=== PATIENT | female | born 1945 | race Caucasian/White ===

== ENCOUNTER → 2017-12-15 | Outpatient (CLI) | payer OTHER | LOC: LAB 11:00 → LAB SHORT 11:00 | DX: N39.0 Urinary tract infection, site not specified (principal) | CPT/HCPCS: 87086 ==

== ENCOUNTER → 2019-02-20 | Outpatient (CLI) | payer OTHER ==
[2019-02-21 10:37] LABS: Stool Occult Bld Immuno 1 Negative (NEGATIVE)
== END | disposition home or self-care (01) ==
LOC: LAB 12:19 → LAB SHORT 12:19 → LAB FUT 02-14 13:15
PROVIDERS: Family Medicine
DX: Z12.11 Encounter for screening for malignant neoplasm of colon (principal)
CPT/HCPCS: G0328

== ENCOUNTER 2020-04-02 08:08 | Day surgery (SDC) | payer OTHER ==
[~2020-04-02] VITALS: Ht 165.1 cm; Wt 77.5 kg
[~2020-04-02 08:08] MED LIST: ASPIR 8181 M1 PO; ATOR20 PO; Caltrate-600 W1 EACH PO; HYDCHL25 PO; LEVSOD100 PO; OMEGA-31000 MG PO
--- NOTE | 2020-04-02 08:51 | NUR ---
04/02/20 0851 Charles Batres CALL LIGHT WITHIN REACH
--- NOTE | 2020-04-02 10:11 | NUR ---
04/02/20 1011 NYA WEEMS PATIENT VSS, DENIES PAIN.NAUSEA. IV DC'D. PATIENT TO RECLINER AND TOLERATING PO INTAKE. TO BEDSIDE. ENGAGED IN DISCHARGE TEACHING. ALL QUESTIONS ASKED AND ANSWERED. PATIENT DC'D TO WAITING VEHICLE AND FAMILY.
[2020-04-15] MEDS ORDERED: CALCIUM 600 MG1 EAC2 PO (08:10)
[2020-04-15] MEDS ORDERED: PENLAC (08:10)
[2020-04-23] MEDS ORDERED: POTA10T (08:50)
== END 2020-04-02 10:08 | disposition home or self-care (01) ==
LOC: ORSCSDS 08:08
PROVIDERS: Ophthalmology
PROC: 08RJ3JZ Replacement of Right Lens with Synthetic Substitute, Percutaneous Approach (ICD-10-PCS; principal; 2020-04-02 09:30)
DX: H25.11 Age-related nuclear cataract, right eye (principal); I10 Essential (primary) hypertension; E03.9 Hypothyroidism, unspecified; E78.00 Pure hypercholesterolemia, unspecified; Z79.899 Other long term (current) drug therapy; Z79.82 Long term (current) use of aspirin
CPT/HCPCS: J2001; J2250; J3010; J3301; J7040; V2632

== ENCOUNTER → 2020-10-20 | Outpatient (CLI) | payer OTHER ==
[~2020-10-20] MED LIST changes: +CALCIUM 600 MG1 EAC2 PO; +PENLAC; +POTA10T
== END | disposition home or self-care (01) ==
LOC: LAB 15:53 → LAB SHORT 15:53
DX: C44.622 Squamous cell carcinoma of skin of right upper limb, including shoulder (principal)
CPT/HCPCS: 88305

== ENCOUNTER → 2020-11-11 | Outpatient (CLI) | payer OTHER | LOC: LAB SHORT 16:37 → LAB 16:37 | DX: C44.622 Squamous cell carcinoma of skin of right upper limb, including shoulder (principal) | CPT/HCPCS: 88305 ==

== ENCOUNTER → 2021-03-30 | Outpatient (CLI) | payer OTHER ==
[2021-03-31 10:25] LABS: Stool Occult Bld Immuno 1 Negative (NEGATIVE)
== END | disposition home or self-care (01) ==
LOC: LAB SHORT 13:40 → LAB 13:40 → LAB FUT 03-23 14:45
PROVIDERS: Family Medicine
DX: Z12.11 Encounter for screening for malignant neoplasm of colon (principal)
CPT/HCPCS: 82274

== ENCOUNTER → 2023-02-28 | Outpatient (CLI) | payer OTHER | LOC: PLD 07:41 → LAB SHORT 07:41 | DX: D48.5 Neoplasm of uncertain behavior of skin (principal) | CPT/HCPCS: 88305 ==

== ENCOUNTER → 2023-08-02 | Outpatient (CLI) | payer OTHER | LOC: LAB SHORT 15:38 → LAB 15:38 | DX: R82.90 Unspecified abnormal findings in urine (principal) | CPT/HCPCS: 87077; 87086; 87186 ==